=== PATIENT | male | born 1980 | race American Indian/Alaskan Native ===

== ENCOUNTER 2016-12-14 14:31 | Emergency (ER) | payer SELFPAY ==
[2016-12-14 15:03] VITALS: BP 141/96
--- NOTE | 2016-12-14 16:38 | Emergency Department Report ---
Entered by VITO BROWN, acting as scribe for NAA BLOOM PA. HPI - General Chief Complaint: Dental/Oral Time Seen by Provider: 12/14/16 16:07 - HPI HPI: 36 y/o male with a PMHx of HTN presents to the ED c/o left lower dental pain that began 2 weeks ago. Rates pain a 9/10 in severity, which he describes as sharp and throbbing in quality. Aggravated with eating and alleviated with medication. Reports associated left facial swelling, but he denies cough, sinus pain/pressure, sore throat, fever, chills, ear pain, headache, dizziness, chest pain, SOB, nausea, and vomiting. Patient states he had oral surgery about 1 month. Notes his dentist wasn't able to finish the surgery and he has an open socket at tooth #17. Patient states he is here in [place] from [place] for work, and he won't be able to return home to see his doctor for pain medication for 3 months. Reports he was told to come to the ED by his dentist for pain management. Patient was offered Tylenol 3 for pain and refused, because he states the medication wouldn't work. Patient then states his doctor usually prescribes him Oxycontin and he doesn't need more Tylenol 3, because he has some tablets in his car. Reports taking OTC medication for pain with no relief. NKDA. ED Past Medical Hx - Past Medical History Previous Medical History?: Yes Hx Hypertension: Yes - Surgical History Past Surgical History?: Yes Additional Surgical History: ORAL SURGERY - Family History Family history: no significant - Social History Smoking Status: Current Every Day Smoker Substance Use Type: Alcohol Other Social History: single - Medications Home Medications: Home Medications Medication Instructions Recorded Confirmed Last Taken Type Acetaminophen/Codeine [Tylenol 1 tab PO Q6H PRN #12 tab 12/14/16 Unknown Rx /Codeine # 3 tab] Amoxicillin [Amoxicillin TAB] 875 mg PO BID #20 tablet 12/14/16 Unknown Rx ED Review of Systems ROS: Stated complaint: TOOTHACHE Other details as noted in HPI Comment: All other systems reviewed and negative Constitutional: denies: chills, diaphoresis, fever, weakness Eyes: denies: eye pain, eye discharge, vision change ENT: dental pain (tooth #17). denies: ear pain, throat pain Respiratory: denies: cough, orthopnea, shortness of breath, SOB with exertion, SOB at rest, stridor, wheezing Cardiovascular: denies: chest pain, palpitations, dyspnea on exertion, orthopnea , edema, syncope, paroxysmal nocturnal dyspnea Endocrine: no symptoms reported Gastrointestinal: denies: abdominal pain, nausea, vomiting, diarrhea Musculoskeletal: denies: back pain, joint swelling, arthralgia Skin: other (left facial swelling). denies: rash, lesions Neurological: denies: headache, weakness, numbness, paresthesias, confusion, abnormal gait, vertigo Psychiatric: denies: anxiety, depression Hematological/Lymphatic: denies: easy bleeding, easy bruising Physical Exam - Physical Exam Vital Signs: Vital Signs 12/14/16 14:56 Temperature 98.9 F Pulse Rate 61 Respiratory 15 Rate Blood Pressure 141/96 O2 Sat by Pulse 98 Oximetry General: General: This is a well nourished, well developed, 36 year old male in no acute distress and nontoxic in appearance Physical Exam: Head: Normocephalic, atraumatic. No sinus tenderness. Mouth: Moist, no pharyngeal exudate or erythema. Mucosa is moist. Uvula is midline and oral airway is patent. No facial swelling. No peritonsillar abscesses. No dental caries. No dental tenderness. No gingival enlargement or inflammation. No fractured or missing teeth. Nose: Normal external appearance, no drainage. Maxillary and frontal sinuses nontender to palpation Neck: Supple, no C-spine tenderness, no tracheal deviation. Nontender to palpation. no adenopathy Ears: Bilateral TMs ar without any redness, swelling, or drainage. Bilateral EAC without any redness, swelling, or drainage. Abdomen: Soft, nontender to palpation in all quadrants, normal bowel sounds in all quadrants and negative CVA tenderness bilaterally. Eyes: Bilateral pupils equal and reactive to light, bilateral EOM intact. Bilateral sclera and conjunctiva without injection. Normal accommodation. Lungs: Clear to auscultation bilaterally, no rhonchi, wheezes, or rales. Normal work of breathing. No use of accessory muscles Extremities: No CCE. +2 pulses. No neurovascular compromise Cardiovascular: S1-S2, regular rate, regular rhythm. No murmurs. Skin: Clean, dry, and intact with no rash and no lesions Psych: Normal mood and behavior ED Course Vital Signs 12/14/16 14:56 Temperature 98.9 F Pulse Rate 61 Respiratory 15 Rate Blood Pressure 141/96 O2 Sat by Pulse 98 Oximetry - Reevaluation(s) Reevaluation #1: 12/14/16 16:32 Patient here requesting OxyContin for left lower toothache that he said he had partial surgery to his back tooth and he has to go back to his surgeon in [place] to have surgery completed. Said he has a dry socket and he is not able to get back to [place] for 3 months because he is here working and his insurance does not work in [place]. Patient oral exam is normal. ED Medical Decision Making - Medical Decision Making ED course: Patient here complaining of left lower toothache and facial swelling. He does not have any facial swelling and exam and oral exam is normal. I discussed the patient that I'll refer him to [facility] that he should call on Saturday to schedule an appointment. Symptoms him that I'll put him on antibiotic and some pain medication for a couple days but he will need to follow up with a dentist fix this dental problem. Diagnosis of toothache. Patient was understanding of diagnosis and treatment plan and discharged home with prescription for amoxicillin and Tylenol 3. Critical care attestation.: If time is entered above; I have spent that time in minutes in the direct care of this critically ill patient, excluding procedure time. ED Disposition Clinical Impression: Tooth ache Disposition: DC-01 TO HOME OR SELFCARE Is pt being admited?: No Does the pt Need Aspirin: No Condition: Stable Instructions: Toothache (ED) Additional Instructions: Please increase her fluid intake follow-up at [facility] Do not drive or operate heavy machinery while taking Tylenol No. 3 as this medication will make you drowsy Prescriptions: Acetaminophen/Codeine [Tylenol /Codeine # 3 tab] 1 tab PO Q6H PRN #12 tab PRN Reason: Toothache Amoxicillin [Amoxicillin TAB] 875 mg PO BID #20 tablet Referrals: [facility] [Outside] - 12/17/16 Forms: Work/School Release Form(ED) This documentation as recorded by the STEPHANIE moya JASMINE,accurately reflects the service I personally performed and the decisions made by me,NAA BLOOM PA.
== END 2016-12-14 16:40 | disposition home or self-care (01) ==
LOC: ED 14:31
DX: K08.89 Other specified disorders of teeth and supporting structures (principal); I10 Essential (primary) hypertension; F17.200 Nicotine dependence, unspecified, uncomplicated
CPT/HCPCS: 99282